=== PATIENT | female | born 1975 ===

== ENCOUNTER 2017-10-28 08:09 | Day surgery (SDC) | payer SELFPAY ==
[2017-10-17 07:07] VITALS: BMI 33.3
[2017-10-28 08:59] VITALS: RESP 18
--- NOTE | 2017-10-28 09:03 | CP.SDSHP ---
Same Day Surgery H & P - History Proposed Procedure: Right peroneal tendon debulking with repair Pre-Op Diagnosis: Right peroneal tendonitis - Allergies Allergies: Allergies morphine Allergy (Verified 10/28/17 08:26) ITCHING - Physical Exam Vital Signs: Vital Signs 10/28/17 08:58 Temperature 98.3 F Pulse Rate 66 Respiratory 18 Rate Blood Pressure 109/64 O2 Sat by Pulse 96 Oximetry - Date & Time Date: 10/28/17 Time: 15:28 Short Stay Discharge - Short Stay Discharge Admitting Diagnosis/Reason for Visit: S86.312A Disposition: HOME/ ROUTINE Additional Instructions (Diet, Activity): -Patient in good/stable condition for discharge home -Pt to resume medications per medical reconciliation -Resume regular diet Please keep dressing clean, dry, & intact to surgical site -Use plastic bag over bandage for showering -Wear post op shoe at all times when ambulating -Call clinic if you see signs of infection (redness, swelling, malodor) -Please make an appointment to see Dr. Lacey in office/clinic within 1 week for post-op check Progress Note/Discharge Note with Instructions: - Patient evaluated bedside in recovery s/p surgical procedure. - After surgical procedure patient in NAD - (+) Void, (+) Appetite - Capillary refill time <3s and NVSI intact. - Patient denies complaints at this time - Post operative instructions and plan of care explained to patient at length. - Pt. acknowledges understanding. - Patient stable for DC per podiatric surgery
[2017-10-28] MEDS ORDERED: ceFAZolin IV 1 gm in Dextrose 1 GM/50 ML BAG IVPB ONE (09:06)
[2017-10-28] MEDS ORDERED: Lidocaine 1% Inj (20ml) IJ ONE (09:06)
[2017-10-28] MEDS ORDERED: Bupivacaine 0.5% Inj(30mL) IJ ONE (09:06)
--- NOTE | 2017-10-28 09:10 | CP.PCM.PN ---
Subjective - Date & Time of Evaluation Date of Evaluation: 10/28/17 Time of Evaluation: 09:04 - Subjective Subjective: 42yo female patient was seen and evaluated for right foot peroneal tendon surgery. Patient states that she has been having right foot pain since February , when she fell out of bed and twisted her ankle. She states she has tried corticosteroid injections and physical therapy, however her pain has not resolved. Her pain is worse when she moves her foot from side to side. She denies any new pedal complaints at this time. Patient states she has been NPO since 9:00 pm last night and denies drinking fluids or eating since that time. Patient is fully aware why she is going to the surgery today with Dr. Lacey. Patients was present at bedside. Patient states she is allergic to Morphine. Denies N/V/F/SOB/CP. Objective - Vital Signs/Intake and Output Vital Signs (last 24 hours): Temp Pulse Resp BP Pulse Ox 98.3 F 66 18 109/64 96 10/28/17 08:58 10/28/17 08:58 10/28/17 08:58 10/28/17 08:58 10/28/17 08:58 - Constitutional Appears: Well, Non-toxic, No Acute Distress - Head Exam Head Exam: ATRAUMATIC, NORMOCEPHALIC - Extremities Exam Additional comments: Vascular: DP and PT pulses palpable 2/4. CFT <3 seconds to all digit. TG WNL Neuro: Gross sensation and protective sensation intact. Derm: No open lesions noted. No ecchymosis noted. No erythema noted. Skin appears well hydrated. Edema to right lateral midfoot present. Ortho: Tenderness to palpation of peroneal tendons and ATFL. MMT 5/5 upon plantarflexion, dorsiflexion, inversion and eversion. Pain on active inversion and eversion. - Neurological Exam Neurological Exam: Alert, Awake, Oriented x3 - Psychiatric Exam Psychiatric exam: Normal Affect, Normal Mood Assessment and Plan - Assessment and Plan (Free Text) Assessment: 42yo female patient was seen and evaluated for right foot peroneal tendon surgery. Plan: Pt was seen and examined in SDS Pt NPO status was confirmed All pre-op testing and clearance in chart Pt has exhausted all conservative treatment at this time and is opting for surgical intervention Pt was explained procedure and post-operative course All pt's questions were answered to satisfaction No guarantees were made Pt understands all risks, benefits and complications of procedure Pt will follow-up with Dr. Lacey within 1 week of surgery
[2017-10-28] MEDS ORDERED: Sodium Chloride 0.9% 1,000 ML IV SCH (09:15)
[2017-10-28] MEDS ORDERED: Propofol 10 mg/ml Inj (20 ML) ONE (10:23)
[2017-10-28] MEDS ORDERED: Midazolam 2 MG/2 ML VIAL ONE (10:24)
[2017-10-28] MEDS ORDERED: Rocuronium 10 mg/ml (5 ml) ONE (10:24)
[2017-10-28] MEDS ORDERED: Lactated Ringer's 1,000 ML IV ONE ×2 (10:25→12:28)
[2017-10-28] MEDS ORDERED: Lidocaine 1% 5ml Abboject IV ONE (10:36)
[2017-10-28] MEDS ORDERED: Dexamethasone 4 mg/1 ml ONE (10:54)
[2017-10-28] MEDS ORDERED: Ropivacaine 0.5% 30ML IV ONE (11:16)
[2017-10-28] MEDS ORDERED: Desflurane Inhalation Anesthetic Liq (240 ml) ONE (12:01)
[2017-10-28] MEDS ORDERED: Neostigmine 1:1000 (1 mg/ml) Inj ONE (12:16)
[2017-10-28] MEDS ORDERED: Oxycodone/Acetaminophen 5/325 mg Tab PO PRN ×2 (12:32)
--- NOTE | 2017-10-28 12:37 | PCM.SURG1 ---
<Cherry García - Last Filed: 10/28/17 12:35> Surgeon's Initial Post Op Note - Surgeon's Notes Surgeon: Dr. Lacey DPM Type of Anesthesia: General Endo Pre-Operative Diagnosis: Right peroneal tendonitis Operative Findings: See dictation. I:19 cc of .5% marcaine plain. M: Post-Operative Diagnosis: same Specimen/Specimens Removed: soft tissue mass from right foot Estimated Blood Loss: EBL {In ML}: 5 Blood Products Given: N/A Drains Used: No Drains Post-Op Condition: Good Date of Surgery/Procedure: 10/28/17 <Valentín Alfredo - Last Filed: 10/28/17 12:51> Surgeon's Initial Post Op Note - Surgeon's Notes Jackerman: Dr. Alfredo PGY-1 Type of Anesthesia: General Endo, Local Anesthesia Administered By: Dr. Colon Operative Findings: M: 3-0 fiberwire for retubularization, 4-0 vicryl, 3-0 vicryl, 4-0 prolene (subcuticular) Operation Performed: Right peroneal tendon debulking and removal of pathologic tissue, repair of partial tear and retubularization of peroneal tendon Time of Surgery/Procedure: 12:50
--- NOTE | 2017-10-28 13:03 | PCM.ANESB2 ---
Popliteal Nerve Block - Popliteal Nerve Block Date of Procedure: 10/28/17 Anesthesiologist: Isaiah Pre-Procedure Diagnosis: peroneal tendon injury right Post-Procedure Diagnosis: same Procedure Performed: Popliteal Nerve Block Right - Procedure Popliteal Nerve Block: This procedure was explained to the patient that it is for post-operative pain management. Consent was obtained after a thorough discussion with the patient regarding the benefits and possible complications of local anesthetic block of the sciatic nerve at the popliteal level. The patient was brought to the operating room and standard monitors are applied. Time-out was held with the circulating nurse to confirm the correct surgery and the appropriate block. After applying oxygen by nasal cannula and administering IV Sedation, patient's operative leg was gently raised and supported and the groove in between the biceps femoris and vastus lateralis muscles was carefully palpated. The skin approximately 8cm above the popliteal crease was then marked. The ultrasound transducer was then applied to the posterior thigh approximately 8cm above the popliteal crease in the transverse plane and the sciatic nerve before its division was visualized lateral to the popliteal artery and in between the bicep femoris and semimembranosus/semitendinosus muscles. After identification, the lateral portion of the thigh was prepped with Betadine solution three times and Lidocaine 1% was injected subcutaneously for topical anesthesia. At this point, a # 21 gauge Stimuplex insulated 4 inch needle was inserted into pre-marked area and advanced in a perpendicular direction. The needle was inserted above the ultrasound transducer in-plane towards the sciatic nerve in a [id number] direction. Needle advancement was performed carefully under direct ultrasound visualization. Nerve stimulator was used and dorsiflexion of the _right____ foot was elicited at a current of __0.4___ MA. After repeated negative aspiration, __15___cc of _0.5____ % _ropivicaine was injected and this was flowed with __5____ cc of __2____% __lidocaine . Under ultrasound guidance the local anesthetics were observed surrounding sciatic nerve . The needle was removed intact and sterile dressing was applied. The patient tolerated the popliteal nerve block well with stable vital signs and was subsequently prepared for the surgery.
[2017-10-28 16:29] VITALS: BP 124/57; PULSE 78; TEMP 98.7; O2SAT 99
--- NOTE | 2017-11-01 23:09 | OP ---
Copied To: VALENTÍN ALFREDO Attending MD: Tin Lacey DPM PROCEDURE DATE: 10/28/2017 PATIENT AGE: 42. PATIENT SEX: Female. PREOPERATIVE DIAGNOSIS: Right peroneal tendonitis and partial tear. POSTOPERATIVE DIAGNOSIS: Right peroneal tendonitis and partial tear. NAME OF PROCEDURES: Right peroneal tendon debulking and removal of pathologic tissue, coblation of tendon using [place], and repair of partial tear with retubularization of peroneal tendon. SURGEON: Tin Lacey DPM CHIEF STATION ENGINEER: Valentín Alfredo, PGY-1 ANESTHESIOLOGIST: Chano Colon MD ANESTHESIA: General endotracheal and local. INDICATIONS: The patient is a 42-year-old female with the above diagnosis. The patient has exhausted conservative treatment at this time and now requests surgical intervention. The patient signed the consent after careful explanation of risks, benefits, complications, and alternatives for surgical procedure. No guarantees were given nor implied. Ancef 2 g IV was given to the patient one half hour prior to the procedure. N.p.o. status was confirmed prior to taking the patient to the OR. PREPARATION: The patient was brought to the operating room and placed on the operating room table in a lateral position. A well-padded pneumatic thigh tourniquet was placed to the patient's right thigh. After induction of general endotracheal anesthesia, the patient received a total of 19 mL of 0.5% Marcaine in a local ankle block fashion to the right foot. Once local anesthesia was achieved, the right lower extremity was then prepped and draped in the usual sterile manner. Esmarch was utilized to exsanguinate the patient's right foot. Pneumatic thigh tourniquet was then inflated to 350 mmHg and procedure began. DESCRIPTION OF PROCEDURE: Attention was directed to the right lateral ankle where a 6-mm incision was made posterior to lateral malleolus. The anatomy was identified and the peroneal tendons were exposed after sharp and blunt dissection. Using hemostat and [place] elevator, taking care to retract the sural nerve from the surgical incision site, a 15-blade was used to dissect the skin and superficial tissue. The peroneal tendon was found to be thickened, fibrotic with calcification, and partially towards the level of the peroneal groove posterior to the lateral malleolus. Through a 2-cm longitudinal split of the peroneal tendon, the broad enough to the fibrotic calcific tissue was performed using a 15-blade and Adson-Brown pickup, and the specimen were sent for pathology. Then, utilizing a Vino Volo coblation system, approximately 20 coblation punctures were made along the peroneal tendon. The incision site was then thoroughly irrigated with sterile saline. Post-debridement and coblation, retubularization of the tendon was performed using a 3-0 FiberWire suture. Closure was done from deep superficial tissue using 4-0 and 3-0 Vicryl sutures for subcutaneous tissue and 4-0 Prolene for skin in a subcuticular fashion. After closure, the wound was dressed with Xeroform, , and Art wrap. POSTOPERATIVE CONDITION: The patient tolerated the anesthesia and procedure well and escorted to the recovery room with vital signs stable and neurovascular status intact to the right foot. The patient was then given a postoperative popliteal block by Dr. Colon using 20 mL of lidocaine plain. This patient will make an appointment to follow up with Dr. Lacey in his clinic. VALENTÍN HYMOWITZ Tin Lacey DPM
== END 2017-10-28 16:35 | disposition home or self-care (01) ==
LOC: H.OPSURG 08:09
PROVIDERS: ATTEND Podiatrist Foot & Ankle Surgery
DX: S86.312A Strain of muscle(s) and tendon(s) of peroneal muscle group at lower leg level, left leg, initial encounter (principal); E03.9 Hypothyroidism, unspecified; W06.XXXA Fall from bed, initial encounter; M76.71 Peroneal tendinitis, right leg
CPT/HCPCS: 27659; 88305; 97161; G8978; G8979; G8980; J0690; J1100; J1885; J2175; J2250; J2405; J2704; J2710; J3010; J7030; J7040; J7120